=== PATIENT | female | born 1945 | race Caucasian/White ===

== ENCOUNTER 2017-06-05 15:23 | Observation (INO) | payer SELFPAY ==
[~2017-06-05] VITALS: Ht 175.3 cm; Wt 82.1 kg
[2017-06-05] MEDS ORDERED: LEVODOPA25 GM (15:33)
[2017-06-05 16:07] LABS: HEMATOCRIT 41.9 % (37.0-47.0); HEMOGLOBIN 13.7 g/dL (12.5-16.0); MEAN CELL VOLUME 94 fl (78-100); MEAN CORPUSCULAR HEMOGLOBIN 31 pg (27-31); MEAN CORPUSCULAR HGB CONC 33 g/dL (33-37); MEAN PLATELET VOLUME 9.6 fl (7.4-10.4); PLATELET COUNT 315 K/mm3 (130-400); RED BLOOD COUNT 4.44 M/mm3 (4.10-5.30); RED CELL DISTRIBUTION WIDTH 13.2 % (11.5-14.5); WHITE BLOOD COUNT 8.7 K/mm3 (4.8-10.8)
[2017-06-05 16:19] LABS: ALBUMIN 3.9 g/dL (3.5-5.0); CALCIUM 9.4 mg/dL (8.4-10.2); POTASSIUM 3.9 mmol/L (3.6-5.0); TOTAL BILIRUBIN 0.8 mg/dL (0.2-1.3); TOTAL PROTEIN 7.1 g/dL (6.3-8.2)
[2017-06-05 16:28] LABS: BAND 7 % (0-10); LYMPHOCYTE 7 % (20-51); MONOCYTE 3 % (3-10); NEUTROPHILS 83 % (42-75)
[2017-06-05 16:31] LABS: PH-URINE 5.5 (5.0 - 8.0); URINE APPEARANCE CLEAR; URINE COLOR YELLOW; URINE PROTEIN(semi-quant) TRACE mg/dL (NEGATIVE)
[2017-06-05 16:32] LABS: URINE BILIRUBIN NEGATIVE (NEGATIVE); URINE BLOOD 50 ery/uL (NEGATIVE); URINE KETONE NEGATIVE (NEGATIVE); URINE LEUKOCYTE ESTERASE NEGATIVE (NEGATIVE); URINE MUCUS PRESENT (NOT PRESENT); URINE NITRATE NEGATIVE (NEGATIVE); URINE UROBILINOGEN NORMAL (NORMAL); URINE WBC 0-1 /hpf (0-3)
[2017-06-05 18:32] VITALS: BP 107/73
[2017-06-05 18:39] VITALS: BP 107/73
[2017-06-05 23:00] VITALS: BP 99/71
[2017-06-06 02:32] VITALS: BP 108/75
[2017-06-06 06:42] VITALS: BP 124/86
[2017-06-06 08:29] LABS: EOS # 0.1 (0.04-0.40); EOS % 1.6 % (1.0-5.0); HEMATOCRIT 37.9 % (37.0-47.0); HEMOGLOBIN 12.4 g/dL (12.5-16.0); LYMPH# 1.8 (1.50-4.00); MEAN CELL VOLUME 96 fl (78-100); MEAN CORPUSCULAR HEMOGLOBIN 31 pg (27-31); MEAN CORPUSCULAR HGB CONC 33 g/dL (33-37); MEAN PLATELET VOLUME 9.9 fl (7.4-10.4); MONO # 0.4 (0.20-0.80); NEU # 3.4 (1.40-6.50); PLATELET COUNT 285 K/mm3 (130-400); RED BLOOD COUNT 3.96 M/mm3 (4.10-5.30); RED CELL DISTRIBUTION WIDTH 13.3 % (11.5-14.5); WHITE BLOOD COUNT 5.8 K/mm3 (4.8-10.8)
[2017-06-06 08:38] LABS: BUN/CREATININE RATIO 28.9 (6.0-26.0); POTASSIUM 3.8 mmol/L (3.6-5.0)
[2017-06-06 11:14] VITALS: BP 114/76
[2017-06-06 15:30] VITALS: BP 124/86
[2017-06-06 18:17] VITALS: BP 101/66
[2017-06-06 22:36] VITALS: BP 126/80
[2017-06-07 02:45] VITALS: BP 118/81
[2017-06-07 06:55] VITALS: BP 132/88
[2017-06-07 11:37] VITALS: BP 113/81
[2017-06-07] MEDS ORDERED: SINEMET 25-1001 EACH PO (12:21)
[2017-06-07] MEDS ORDERED: ULTRAM50 M1 PO (12:26)
== END 2017-06-07 14:35 | disposition home health service (06) ==
LOC: ED 15:23 → MED/SURG 18:01
PROVIDERS: ADMIT Family Medicine
DX: T79.6XXA Traumatic ischemia of muscle, initial encounter (principal); G20 Parkinson's disease; W19.XXXA Unspecified fall, initial encounter; Y92.009 Unspecified place in unspecified non-institutional (private) residence as the place of occurrence of the external cause; S40.011A Contusion of right shoulder, initial encounter; M19.011 Primary osteoarthritis, right shoulder; T42.8X6A Underdosing of antiparkinsonism drugs and other central muscle-tone depressants, initial encounter; Z91.138 Patient's unintentional underdosing of medication regimen for other reason
CPT/HCPCS: G0378; J1885; J7030

== ENCOUNTER → 2017-09-30 | Outpatient (CLI) | payer MEDICARE ==
[~2017-09-30] MED LIST: LEVODOPA25 GM; SINEMET 25-1001 EACH PO; ULTRAM50 M1 PO
[2017-09-30 12:42] LABS: EOS # 0.1 (0.04-0.40); EOS % 1.4 % (1.0-5.0); HEMATOCRIT 42.2 % (37.0-47.0); HEMOGLOBIN 13.3 g/dL (12.5-16.0); LYMPH# 1.9 (1.50-4.00); MEAN CELL VOLUME 97 fl (78-100); MEAN CORPUSCULAR HEMOGLOBIN 31 pg (27-31); MEAN CORPUSCULAR HGB CONC 32 g/dL (33-37); MEAN PLATELET VOLUME 9.2 fl (7.4-10.4); MONO # 0.4 (0.20-0.80); NEU # 2.1 (1.40-6.50); PLATELET COUNT 324 K/mm3 (130-400); RED BLOOD COUNT 4.34 M/mm3 (4.10-5.30); RED CELL DISTRIBUTION WIDTH 13.2 % (11.5-14.5); WHITE BLOOD COUNT 4.4 K/mm3 (4.8-10.8)
[2017-09-30 13:28] LABS: ALBUMIN 4.2 g/dL (3.5-5.0); BUN/CREATININE RATIO 25.4 (6.0-26.0); CALCIUM 9.2 mg/dL (8.4-10.2); POTASSIUM 4.4 mmol/L (3.6-5.0); TOTAL BILIRUBIN 0.7 mg/dL (0.2-1.3); TOTAL PROTEIN 7.9 g/dL (6.3-8.2)
[2017-09-30 14:12] LABS: ERYTHROCYTE SEDIMENTATION RATE 10 mm/hr (0-30)
== END ==
LOC: LAB 12:25
PROVIDERS: Internal Medicine
DX: K90.0 Celiac disease (principal); K90.89 Other intestinal malabsorption; M25.511 Pain in right shoulder; G20 Parkinson's disease

== ENCOUNTER → 2017-10-14 | Outpatient (CLI) | payer MEDICARE | LOC: RAD 16:50 | DX: M79.671 Pain in right foot (principal) ==

== ENCOUNTER → 2017-10-20 | Outpatient (CLI) | payer MEDICARE | LOC: RAD 07:39 | DX: S46.011A Strain of muscle(s) and tendon(s) of the rotator cuff of right shoulder, initial encounter (principal); M19.011 Primary osteoarthritis, right shoulder; M25.411 Effusion, right shoulder; W19.XXXA Unspecified fall, initial encounter ==

== ENCOUNTER 2018-01-27 11:15 | Outpatient (RCR) | payer MEDICARE | END 2018-01-27 11:45 | disposition home or self-care (01) | LOC: PT 11:15 | DX: M19.012 Primary osteoarthritis, left shoulder (principal); M19.011 Primary osteoarthritis, right shoulder; M75.102 Unspecified rotator cuff tear or rupture of left shoulder, not specified as traumatic; M75.101 Unspecified rotator cuff tear or rupture of right shoulder, not specified as traumatic; G20 Parkinson's disease; Z91.81 History of falling | CPT/HCPCS: G8978-GP; G8979-GP ==

== ENCOUNTER 2019-08-31 14:00 | Outpatient (RCR) | payer MEDICARE | END 2019-08-31 14:30 | disposition still patient (30) | LOC: PT 14:00 | DX: G20 Parkinson's disease (principal); G25.81 Restless legs syndrome; G47.00 Insomnia, unspecified; R41.3 Other amnesia; R29.2 Abnormal reflex ==

== ENCOUNTER → 2019-09-12 | Outpatient (CLI) | payer MEDICARE ==
[2019-09-12 14:33] LABS: CALCIUM 9.2 mg/dL (8.3-10.5); POTASSIUM 4.1 mmol/L (3.5-5.1)
[2019-09-12 14:35] LABS: HEMATOCRIT 42.9 % (37.0-47.0); HEMOGLOBIN 13.4 g/dL (12.5-16.0); MEAN PLATELET VOLUME 10.5 fl (7.4-10.4); RED BLOOD COUNT 4.36 M/mm3 (4.10-5.30); RED CELL DISTRIBUTION WIDTH 12.8 % (11.5-14.5); WHITE BLOOD COUNT 3.4 K/mm3 (4.8-10.8)
[2019-09-13 16:07] LABS: SYPHILIS AB SCREEN w REFLEX Negative (Negative)
[2019-09-14 02:28] LABS: FOLATE (FOLIC ACID) 14.3 ng/mL (>=4.0)
== END ==
LOC: LAB 11:41
PROVIDERS: Psychiatry & Neurology Neurology
DX: C20 Malignant neoplasm of rectum (principal); G25.81 Restless legs syndrome; R53.1 Weakness; R41.3 Other amnesia; R29.2 Abnormal reflex

== ENCOUNTER → 2019-09-15 | Outpatient (CLI) | payer MEDICARE | LOC: LAB 11:13 | DX: C20 Malignant neoplasm of rectum (principal); G25.81 Restless legs syndrome; R41.3 Other amnesia; R29.2 Abnormal reflex ==

== ENCOUNTER → 2020-06-20 | Outpatient (CLI) | payer MEDICARE | LOC: RAD 14:56 | DX: M25.471 Effusion, right ankle (principal); M85.80 Other specified disorders of bone density and structure, unspecified site ==

== ENCOUNTER → 2020-07-02 | Outpatient (CLI) | payer MEDICARE ==
[2020-07-02 10:41] LABS: ALBUMIN 3.8 g/dL (3.4-4.8); POTASSIUM 3.8 mmol/L (3.5-5.1); SODIUM 142 mmol/L (136-145)
[2020-07-02 10:43] LABS: CALCIUM 9.2 mg/dL (8.3-10.5)
[2020-07-02 10:44] LABS: GLUCOSE 88 mg/dL (65-105); TOTAL PROTEIN 6.9 g/dL (6.2-8.1)
[2020-07-02 10:45] LABS: CARBON DIOXIDE 27 mmol/L (23-31)
[2020-07-02 10:46] LABS: TOTAL BILIRUBIN 0.7 mg/dL (0.2-1.2)
[2020-07-02 10:49] LABS: AST-SGOT 14 U/L (5-34)
[2020-07-02 10:50] LABS: ALT/SGPT 13 U/L (0-55)
[2020-07-02 10:54] LABS: EOS # 0.1 (0.04-0.40); EOS % 1.4 % (1.0-5.0); HEMATOCRIT 42.4 % (37.0-47.0); LYMPH# 1.2 (1.50-4.00); MEAN CELL VOLUME 98 fl (78-100); MEAN CORPUSCULAR HEMOGLOBIN 30 pg (27-31); MEAN CORPUSCULAR HGB CONC 31 g/dL (33-37); MEAN PLATELET VOLUME 9.8 fl (7.4-10.4); MONO # 0.3 (0.20-0.80); NEU # 1.9 (1.40-6.50); PLATELET COUNT 261 K/mm3 (130-400); RED BLOOD COUNT 4.34 M/mm3 (4.10-5.30); RED CELL DISTRIBUTION WIDTH 12.5 % (11.5-14.5); WHITE BLOOD COUNT 3.5 K/mm3 (4.8-10.8)
[2020-07-02 11:11] LABS: PROTHROMBIN TIME 10.4 SECONDS (9.0-12.0)
[2020-07-02 12:15] LABS: ERYTHROCYTE SEDIMENTATION RATE 5 mm/hr (0-30)
== END ==
LOC: RAD 10:03
PROVIDERS: Internal Medicine
DX: I70.209 Unspecified atherosclerosis of native arteries of extremities, unspecified extremity (principal); Z90.49 Acquired absence of other specified parts of digestive tract; Z96.641 Presence of right artificial hip joint
CPT/HCPCS: Q9967

== ENCOUNTER → 2020-07-05 | Outpatient (CLI) | payer MEDICARE ==
[2020-07-05 11:34] LABS: HEMATOCRIT 40.9 % (37.0-47.0); HEMOGLOBIN 12.5 g/dL (12.5-16.0); MEAN PLATELET VOLUME 9.7 fl (7.4-10.4); RED BLOOD COUNT 4.22 M/mm3 (4.10-5.30); RED CELL DISTRIBUTION WIDTH 12.4 % (11.5-14.5); WHITE BLOOD COUNT 3.1 K/mm3 (4.8-10.8)
[2020-07-05 11:47] LABS: CALCIUM 9.1 mg/dL (8.3-10.5)
== END ==
LOC: LAB 10:54
PROVIDERS: Internal Medicine
DX: Z01.812 Encounter for preprocedural laboratory examination (principal); Z11.59 Encounter for screening for other viral diseases; I73.9 Peripheral vascular disease, unspecified

== ENCOUNTER → 2021-11-19 | Outpatient (CLI) | payer MEDICARE, MEDICAID | LOC: RAD 13:15 | DX: M79.604 Pain in right leg (principal) ==